=== PATIENT | female | born 1980 | race Asian ===

== ENCOUNTER 2017-09-11 16:43 | Inpatient (IN) | payer BC ==
[2017-09-11] MEDS ORDERED: Misoprostol TAB* 100 MCG VAGINAL ONE (18:39)
[2017-09-11 19:25] LABS: ABS Basophils 0 10^3/ul (0-0.2); ABS Eosinophils 0.1 10^3/ul (0-0.6); ABS Lymphocytes 1.4 10^3/ul (1.0-4.8); ABS Monocytes 0.7 10^3/ul (0-0.8); ABS Neutrophils 8.2 10^3/ul (1.5-7.7); ABS Nucleated RBC 0 10^3/ul; Eosinophil % 0.5 % (0-6); Hematocrit 38 % (35-47); Hemoglobin 12.6 g/dl (12.0-16.0); Lymphocyte % 13.7 % (25-47); Mean Corpuscular HGB Conc 33 g/dl (31-36); Mean Corpuscular Hemoglobin 29 pg (27-31); Mean Corpuscular Volume 86 fL (80-97); Mean Platelet Volume 9 um3 (7.4-10.4); Nucleated Red Blood Cells % 0; Platelet Count 231 10^3/ul (150-450); Red Cell Distribution Width 15 % (10.5-15); White Blood Count 10.3 10^3/ul (3.5-10.8)
[2017-09-11] MEDS ORDERED: Oxytocin in LR* 20 UNITS/1,000 ML BAG IVPB SCH (23:00)
[2017-09-11] MEDS ORDERED: Promethazine INJ(RESTRICTED)* 25 MG/ML 1 ML VIAL IV ONE (23:00)
[2017-09-11] MEDS ORDERED: Nalbuphine* 20 MG/ML 1 ML VIAL IV ONE (23:00)
[2017-09-12] MEDS ORDERED: OBEPIDURAL* 250 ML EPIDURAL ONE (02:00)
[2017-09-12] MEDS ORDERED: Sodium Citrate/Citric Acid* 15 ML UDC PO PRN (02:40)
[2017-09-12] MEDS ORDERED: Famotidine TAB* 20 MG PO PRN (02:40)
[2017-09-12] MEDS ORDERED: Phenylephrine IV* 40 MCG/ML 10 ML SYRINGE IV PUSH PRN ×2 (02:40)
[2017-09-12] MEDS ORDERED: EPHEDrine (Pressors)* 50 MG/ML VIAL IV PUSH PRN ×2 (02:40)
[2017-09-12] MEDS ORDERED: OBEPIDURAL* 250 ML EPIDURAL SCH (03:00)
[2017-09-12] MEDS ORDERED: ceFOXitin 2 GM IVPREMIX* 2 GM/50 ML BAG IVPB ONE (09:25)
[2017-09-12] MEDS ORDERED: NS 0.9% 50 ML* 50 ML with ceFOXitin(*) 2 GM IVPB ONE ×2 (10:00)
[2017-09-12] MEDS ORDERED: Lidocaine 2% PF* 10 ML AMP ONE ×2 (10:02→10:07)
[2017-09-12] MEDS ORDERED: OXYTOCIN* 10 UNITS/ML 1 ML VIAL ONE (10:02)
[2017-09-12] MEDS ORDERED: fentaNYL* 50 MCG/ML 2 ML VIAL (100 MCG VIAL) ONE (10:02)
[2017-09-12] MEDS ORDERED: Morphine PF AMP (0.5MG/ML)* 5 MG/10 ML AMP ONE (10:24)
[2017-09-12] MEDS ORDERED: Ketorolac INJ* 30 MG/ML 1 ML VIAL ONE (10:26)
[2017-09-12] MEDS ORDERED: Witch Hazel PAD* JAR TOPICAL PRN (10:44)
[2017-09-12] MEDS ORDERED: Dibucaine 1% 28.35 GM TUBE PR PRN (10:44)
[2017-09-12] MEDS ORDERED: Naloxone* 0.4 MG/ML 1 ML VIAL IV PRN ×2 (10:46→10:47)
[2017-09-12] MEDS ORDERED: Ondansetron INJ* 2 MG/ML VIAL IV PRN ×2 (10:46→10:47)
[2017-09-12] MEDS ORDERED: fentaNYL* 50 MCG/ML 2 ML VIAL (100 MCG VIAL) IV PRN (10:46)
[2017-09-12] MEDS ORDERED: Scopolamine PATCH Remove* 1 NOTE MISC PATCH OFF PRN (10:47)
[2017-09-12] MEDS ORDERED: oxyCODONE/Acetamin 5/325 MG* TAB PO PRN (10:47)
[2017-09-12] MEDS ORDERED: DiMENhydriNATE IV* 50 MG/ML VIAL IV PUSH PRN (10:47)
[2017-09-12] MEDS ORDERED: Nalbuphine* 20 MG/ML 1 ML VIAL IV PRN ×2 (10:47)
[2017-09-12] MEDS ORDERED: Scopolamine 1.5 mg* PATCH TRANSDERM PRN (10:47)
[2017-09-12] MEDS ORDERED: diPHENhydraMINE IV* 50 MG/ML 1 ml VIAL (BENADRYL) IV PRN (10:47)
[2017-09-12] MEDS ORDERED: HYDROcodone/ACETAMIN 5-325 MG* 1 TAB PO PRN (10:47)
[2017-09-12] MEDS: Docusate CAP* 100 MG PO SCH ×2 (13:14→20:52)
[2017-09-12] MEDS: Acetaminophen TAB* 325 MG PO PRN (13:14)
[2017-09-12] MEDS: Simethicone TAB* 80 MG TAB.CHEW PO SCH ×3 (13:14→20:51)
[2017-09-12] MEDS: Ketorolac INJ* 30 MG/ML 1 ML VIAL IV PRN ×2 (16:29→23:29)
--- NOTE | 2017-09-12 19:18 | OP ---
DATE OF OPERATION: 09/12/17 - ROOM #104 DATE OF : 82 SURGEON: Kelsey Harmon MD PAINTING DEPARTMENT SUPERVISOR: Maritza Xie CNM ANESTHESIOLOGIST: Dr. Giron. ANESTHESIA: Epidural. PRE-OP DIAGNOSIS: Category II heart tracing, remote from delivery, 39 weeks gestation. POST-OP DIAGNOSIS: Category II heart tracing, remote from delivery, 39 weeks gestation. OPERATIVE PROCEDURE: Primary low-transverse section with vacuum assist. ESTIMATED BLOOD LOSS: 700 cc. URINE OUTPUT: 150 cc. IV FLUIDS: 1200 cc lactated Ringer's. MATERIALS TO LAB: Cord blood. INDICATIONS: This patient is a 36-year-old 1, para 0, who presented at 39+2 weeks gestation with spontaneous rupture of membranes. The patient today was 39+3 and had ruptured membranes for about 36 hours. The patient had an epidural for anesthesia and reached completely dilated at about 0 to +1 station. As soon as the patient started pushing, there were deep late variable decelerations on the heart tracing. Initially, these appeared to return to baseline quickly but over the next 20 minutes of trying to push, the fetus did not tolerate it well and there was slow return to baseline. Considering the fetus was only at +1 station and would likely require at least 1 or more hours of additional pushing. The decision was made to proceed with a section. The patient was extensively counseled and consent was signed. The patient agreed with this plan. FINDINGS: Delivery was productive of a male infant weighing 7 pounds 10 ounces with Apgars of 9 and 9. Time of delivery was 0957. COMPLICATIONS: None. DESCRIPTION OF PROCEDURE: The risks, benefits, and alternatives were described to the patient and informed consent was obtained. The patient was taken to the operating room with IV running where epidural anesthesia was induced and found to be adequate. The patient was prepped and draped in the normal sterile fashion in the dorsal supine position with leftward tilt. A Pfannenstiel skin incision was made with a scalpel and this was carried down to the underlying fascia sharply. The fascia was then scored in the midline with the scalpel. The incision was extended using Simon scissors. The rectus muscles were dissected off the rectus fascia using blunt and sharp dissection. The rectus muscles were in the midline bluntly. The peritoneum was also entered bluntly. A bladder blade was placed. A bladder flap was created sharply using Metzenbaum scissors. A low transverse uterine incision was made with the scalpel. This was carried down to the amniotic cavity which was productive of clear fluid. The incision was extended with blunt traction. The head was elevated to the level of the incision but there was difficulty encountered due to the angle needed to deliver the head through the incision. A Kiwi vacuum cup was placed on the scalp and with this guidance and fundal pressure, the head successfully delivered. With continued fundal pressure, the shoulders and body delivered without difficulty. The had excellent tone and cried immediately on delivery. The cord was doubly clamped and cut. The infant was then handed to the awaiting cadmium liquor maker. Cord blood was collected. The placenta then delivered with manual extraction. The uterus was then exteriorized and cleared of all clots and debris. Uterine incision was reapproximated using 0 Polysorb in a running-locked fashion. A second layer of imbricating sutures of 0 Polysorb was also placed with good hemostasis. The posterior cul-de-sac was irrigated with saline. The uterus was then returned to the abdomen, and the incision was reinspected and noted to be hemostatic. The peritoneum was closed with 3-0 Polysorb in a running fashion. The fascia was closed with 0 Polysorb in a running fashion. Subcutaneous tissues were irrigated and made hemostatic with the Bovie. The skin was then closed with 4-0 Monocryl in a subcuticular stitch. Mastisol and Steri-Strips were placed over the incision which was then covered with a sterile bandage. The patient tolerated the procedure well. Sponge, lap, and needle counts were correct x2. [id number]/[facility] #: [id number] [facility]
[2017-09-13] MEDS ORDERED: oxyCODONE/Acetamin 5/325 MG* TAB PO PRN ×2 (02:30)
[2017-09-13] MEDS: Acetaminophen TAB* 325 MG PO PRN ×3 (04:26→14:16)
[2017-09-13] MEDS: Ketorolac INJ* 30 MG/ML 1 ML VIAL IV PRN (05:33)
[2017-09-13 06:46] LABS: ABS Basophils 0.1 10^3/ul (0-0.2); ABS Eosinophils 0.1 10^3/ul (0-0.6); ABS Neutrophils 11.3 10^3/ul (1.5-7.7); ABS Nucleated RBC 0 10^3/ul; Eosinophil % 0.4 % (0-6); Hematocrit 30 % (35-47); Hemoglobin 10.2 g/dl (12.0-16.0); Lymphocyte % 13.6 % (25-47); Mean Corpuscular HGB Conc 35 g/dl (31-36); Mean Corpuscular Hemoglobin 30 pg (27-31); Mean Corpuscular Volume 86 fL (80-97); Mean Platelet Volume 8 um3 (7.4-10.4); Nucleated Red Blood Cells % 0; Platelet Count 155 10^3/ul (150-450); Red Blood Count 3.45 10^6/ul (4.0-5.4); Red Cell Distribution Width 15 % (10.5-15); White Blood Count 14.4 10^3/ul (3.5-10.8)
[2017-09-13] MEDS ORDERED: Ferrous Gluconate TAB* 324 MG TAB PO SCH (09:00)
[2017-09-13] MEDS ORDERED: Tetan/Diph/Pertus SYR(Tdap)* 0.5 ML SYR(BOOSTRIX) use SYR IM ONE (09:00)
[2017-09-13] MEDS: Docusate CAP* 100 MG PO SCH ×3 (10:17→21:21)
[2017-09-13] MEDS: Simethicone TAB* 80 MG TAB.CHEW PO SCH ×4 (10:17→21:21)
[2017-09-13] MEDS: Ibuprofen TAB* 600 MG PO SCH ×2 (11:43→17:38)
--- NOTE | 2017-09-13 12:30 | PTEDU ---
Patient Name: AMLAS STINSON ROBALMAS SINGH selected video: Never Ever Shake a Baby to view on 09/13/2017 at 12:30:07 PM from [facility] [id number]
[2017-09-14] MEDS: Ibuprofen TAB* 600 MG PO SCH ×5 (04:17→21:48)
[2017-09-14] MEDS: Docusate CAP* 100 MG PO SCH ×3 (09:14→21:48)
[2017-09-14] MEDS: Acetaminophen TAB* 325 MG PO PRN (09:14)
[2017-09-14] MEDS: Simethicone TAB* 80 MG TAB.CHEW PO SCH ×3 (09:14→21:48)
[2017-09-15] MEDS: Acetaminophen TAB* 325 MG PO PRN ×2 (02:49→08:44)
[2017-09-15] MEDS: Ibuprofen TAB* 600 MG PO SCH ×2 (04:49→11:10)
[2017-09-15 08:37] VITALS: BP 123/76
[2017-09-15] MEDS: Simethicone TAB* 80 MG TAB.CHEW PO SCH ×3 (08:38→11:10)
[2017-09-15] MEDS: Docusate CAP* 100 MG PO SCH (08:44)
== END 2017-09-15 11:54 | disposition home or self-care (01) | DRG 540 ==
LOC: MCHOBOUT 16:43 → MCHOB 17:44
PROVIDERS: ADMIT Midwife; ATTEND Obstetrics & Gynecology
PROC: 3E033VJ Introduction of Other Hormone into Peripheral Vein, Percutaneous Approach (ICD-10-PCS; 2017-09-12)
PROC: 10D00Z1 Extraction of Products of Conception, Low, Open Approach (ICD-10-PCS; principal; 2017-09-12 09:34)
DX: O76 Abnormality in fetal heart rate and rhythm complicating labor and delivery (principal); O24.420 Gestational diabetes mellitus in childbirth, diet controlled; O42.12 Full-term premature rupture of membranes, onset of labor more than 24 hours following rupture; Z3A.39 39 weeks gestation of pregnancy; Z37.0 Single live birth
CPT/HCPCS: 36415; 84112; 85025; 86850; 86900; 86901; A9270-GY; J0694; J1885; J2001; J2300; J2550; J2590; J3010; S0191